=== PATIENT | female | born 1970 | race Caucasian/White ===

== ENCOUNTER 2022-11-01 10:16 | Outpatient (CLI) | payer OTHER, SELFPAY ==
--- NOTE | ~2022-11-01 | XR_ITS ---
EXAMINATION: XR shoulder LT min 2V INDICATION: Adhesive capsulitis of the left shoulder TECHNIQUE: Four views of the left shoulder are submitted. COMPARISON: None FINDINGS: Normal alignment. No fracture. Glenohumeral and acromioclavicular joint spaces are normal. Soft tissues are unremarkable. IMPRESSION: 1. No acute osseous abnormality. Reviewed, dictated and finalized at location B. 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
== END 2022-11-01 10:17 ==
PROVIDERS: PCP Family Medicine; Visit Provider Physician Assistant
DX: M75.02 Adhesive capsulitis of left shoulder (principal)
CPT/HCPCS: 73030

== ENCOUNTER 2025-01-31 01:41 | Day surgery (SDC) | payer OTHER, SELFPAY ==
[2025-01-20 14:19] VITALS: BMI 27.5
--- OUTSIDE RECORDS SUMMARY | 2025-01-31 01:43 | XMS_ITS | Clinical Summary ---
Author Organization [facility] Address [facility] [place] [address] Care Team Providers Care Medical Practice Manager Name Role Phone Bao Brown MD Primary Care Provider [phone] Allergies Active Allergy Reactions Criticality Noted Date Comments Penicillins Swelling Medium 07/20/2019 Social History Tobacco Use Types Packs/Day Years Used Date Smoking Tobacco: Never Assessed Personal Safety Answer Date Recorded Getting School Help Needed Not on file 01/15 Comments Unknown Sex and Gender Information Value Date Recorded Sex Assigned at Not on file 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
--- OUTSIDE RECORDS SUMMARY | 2025-01-31 01:43 | XMS_ITS | Referral Summary ---
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
--- OUTSIDE RECORDS SUMMARY | 2025-01-31 01:43 | XMS_ITS | Data Portability ---
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 Patient will come back in a year unless there are new symptoms. Not available 03/05/2023 12:09:51 04/06/2024 04/06/2024 Annual gynecological exam performed. Patient will come back in a year unless there are new symptoms. Not available 04/06/2024 17:22:32 Plan of Treatment Reminders Order Date Submit Date Provider Last Modified By Organization Details Last Modified Time Details Appointments None recorded. Lab hormone panel, serum or plasma 2022 023 [facility] (Lab), [address] [place], [address], 3 10:02:05 prolactin, serum 2022 023 [facility] (Lab), [address] [place], [address], 3 10:02:04 TSH, serum or plasma 2022 023 [facility] (Lab), [address] [place], [address], 3 10:02:05 Referral None recorded. Procedures None recorded. Surgeries None recorded. Imaging MAMMO, screening, bilateral [address] [facility], [address], [place], [address], 4 09:54:11 US, pelvis 2022 023 [email or web address] [place], [address], [place], [address], 3 21:12:11 US, transvagina l [email or web address], [address], [address], [place], [address], 3 21:12:11 MAMMO, screening, bilateral 2022 023 [facility], [address], [place], [address], 3 05:00:49 US, pelvis, complete 2022 023 [address], [address], [place], [address], 3 12:04:12 Medication Orders Imvexxy Maintenance Pack 4 mcg vaginal insert 2023 024 [address] [id number], [address] [place], [place], [id number], 4 18:04:20 fluoxetine 20 mg capsule 2022 023 [place] [address] [id number], [address] [place], [place], [id number], 4 17:26:17 Patient TargetsNo targets recorded. Patient InstructionsNo instructions recorded. Reason for Referral None Reported. Results Created Date Observation Date Name Description Value Unit Range Abnormal Flag Note LastModifiedBy Organization Detail LastModifiedTime 03/05/20 23 03/05/2023 PROLA CTIN prolactin, total 11.10 NG/mL 4.79-2 3.30 This assay was perfo rmed using [employer] ratio n reage nts and test kits. Value s obtai cee with other assay metho ds or kits canno t be used inter [facility] . Not Available [facility] (Lab) [address] [facility], [place], [address], 03/06/2023 10:02:04 03/05/20 23 03/05/2023 FSH, LH, ESTRA DIOL estradiol 9.2 pg/mL This assay was perfo rmed using [employer] reage nts and test kits. Value s obtai cee with other assay metho ds or kits canno t be used inter [facility] . Femal e Estra diol Range s: Folli cular phase 12.4- 233 pg/mL Ovula tion phase 41.0- 398 pg/mL Lutea l phase 22.3- 341 pg/mL Postm enopa usal< 5-138 pg/mL Healt hy Pregn ant Women 1st Trime ster1 54-32 43 pg/mL 2nd Trime ster1 561-2 1280 pg/mL 3rd Trime ster8 525-> 82040 pg/mL Not Available [facility] (Lab) [address] [place], [address], 03/06/2023 10:02:05 03/05/20 23 03/05/2023 FSH, LH, ESTRA DIOL FSH 115.0 mIU/m L This assay was perfo rmed using [employer] reage nts and test kits. Value s obtai cee with other assay metho ds or kits canno t be used inter [facility] . Femal es Folli cular : 3.5-1 2.5 mIU/m L Ovula tion: 4.7-2 1.5 mIU/m L Lutea l: 1.7-7 .7 mIU/m L Postm enopa use: 25.8- 134.8 mIU/m L Not Available [facility] (Lab) [address] [facility], [place], [address], 03/06/2023 10:02:05 03/05/20 23 03/05/2023 FSH, LH, ESTRA DIOL LH 62.5 mIU/m L This assay was perfo rmed using [employer] reage nts and test kits. Value s obtai cee with other assay metho ds or kits canno t be used inter [facility] . Femal es Mid-F ollic ular: 2.4-1 2.6 mIU/m L Mid-C ycle: 14.0- 95.6 mIU/m L Mid-L uteal : 1.0-1 1.4 mIU/m L Postm enopa use: 7.7-5 8.5 mIU/m L Not Available [facility] (Lab) [address] [facility], [place], [address], 03/06/2023 10:02:05 03/05/20 23 03/05/2023 TSH, REFLE X FREE T4 TSH 0.94 uIU/m L 0.30-[address] 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 FINAL DIAGN OSIS: Negat bart for Intra epith elial Halina nuñez or Adrian john (NIL) . Elect lexy rich d by James Nick , [place] on 023 at 3:45 PM ----- ----- ----- ----- ----- ----- ----- ----- ----- ----- ----- ----- ----- ----- ----- ----- ----- ---- HPV RESUL TS: HPV mRNA E6/E7 : No HPV mRNA Detec sergio NOTE: This high risk HPV mRNA assay detec ts fourt een high- risk HPV types (16, 18, 31, 33, 35, 39, 45, 51, 52, 56, 58, 59, 66, 68) witho ut diffe renti ation . COMME NT: This speci men was revie wed by a Cytot echno logis t and/o r Patho logis t (as indic ated in this repor t) after evalu ation using the Thinp rep Imagi ng Syste m. CLINI HELDER INFOR MATIO N: Menst rual Statu s: LMP (if appli cable ): Clini helder Histo ry/Pr eviou s Pap: Type of Neopl jaqueline (if appli cable ): Signi fican t Clini helder Findi ngs: Other Histo ry: Hormo sharan (if appli cable ): PAP EDUCA BRY L NOTE: The Pap Test is a scree madelyn test with an inher ent false negat bart rate. Liqui d-bas ed sampl ing may decre ase, but will not elimi miguel, false negat bart resul ts. A negat bart resul t does not precl ude the prese nce and/o r devel opmen t of disea se, since the prese nce of abnor mal cells in the sampl e depen ds on the locat ion of the halina nuñez and sampl ing techn ique. Avinash nued regul ar scree madelyn is the best metho d of cance r preve ntion . If repor sergio cytol ogic findi ng do not corre late with physi helder and/o r histo rical findi ngs, furth er inves tigat ion is recom fabienne d, as clini ton mar nted. Not Available 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 ----- ----- ----- ----- ----- ----- ----- ----- ----- ----- ----- ----- ----- ----- ----- ----- ----- ---- FINAL DIAGN OSIS: Negat bart for Intra epith elial Lesio n or Adrian john (NIL) . [place] rich d by Gopal Conner ed, [place] on 024 at 6:17 PM ----- ----- ----- ----- ----- ----- ----- ----- ----- ----- ----- ----- ----- ----- ----- ----- ----- ---- HPV RESUL TS: HPV mRNA E6/E7 : No HPV mRNA Detec sergio NOTE: This high risk HPV mRNA assay detec ts fourt een high- risk HPV types (16, 18, 31, 33, 35, 39, 45, 51, 52, 56, 58, 59, 66, 68) witho ut diffe renti ation . COMME NT: This speci men was revie wed by a Cytot echno logis t and/o r Patho logis t (as indic ated in this repor t) after evalu ation using the Thinp rep Imagi ng Syste m. CLINI HELDER INFOR MATIO N: Menst rual Statu s: LMP (if appli cable ): Clini helder Histo ry/Pr eviou s Pap: Type of Neopl jaqueline (if appli cable ): Signi fican t Clini helder Findi ngs: Other Histo ry: Hormo sharan (if appli cable ): PAP EDUCA BRY L NOTE: The Pap Test is a scree madelyn test with an inher ent false negat bart rate. Liqui d-bas ed sampl ing may decre ase, but will not elimi miguel, false negat bart resul ts. A negat bart resul t does not precl ude the prese nce and/o r devel opmen t of disea se, since the prese nce of abnor mal cells in the sampl e depen ds on the locat ion of the lesio n and sampl ing techn ique. Avinash nued regul ar scree madelyn is the best metho d of cance r preve ntion . If repor sergio cytol ogic findi ng do not corre late with physi helder and/o r histo rical findi ngs, [facility] inves tigat ion is recom fabienne d, as clini ton mar nted. Not Available [facility] (Lab) [address], [place], [address], 04/09/2024 19:19:51 03/06/20 23 03/06/2023 US, pelvi s No observ ation record ed. [email or web address] [place] [address], [place], [address], 03/06/2023 15:09:07 03/06/20 23 03/06/2023 US, trans vagin al No observ ation record ed. [email or web address] [place] [address], [place], [address], 03/06/2023 15:08:56 03/06/20 23 03/06/2023 US, pelvi s No observ ation record ed. [email or web address], [place], [address], 03/12/2023 10:35:35 Result Notes None recorded. Procedures Surgical History Date Name Laterality Status Provider Name and Address Organization Details Recorded Time 3 Date of Last Pap Smear completed [facility] 04/06/2024 17:26:36 8 Date of Last Mammogram completed [facility] 03/05/2023 12:11:35 9 Caesarean Section completed [facility] 03/05/2023 12:14:47 1 Caesarean Section completed [facility] 03/05/2023 12:14:29 Imaging Results Imaging Date Name Status LastModified by Organization Details LastModified Time 03/06/2023 US, pelvis completed [email or web address] [place] [address], [place], [address], 03/06/2023 15:09:07 03/06/2023 [facility]inal [email or web address] [address], [place], [address], 03/06/2023 15:08:56 03/06/2023 US, pelvis completed [email or web address], [place], [address], 03/12/2023 10:35:35 Procedure Notes None recorded. Medical Equipment None Reported. Allergies Allergen ID Allergen Name Allergen Category Reaction Reaction Severity Criticality Documentation Date Start Date Code Code System Note Provider Name and Address Organization Details Recorded Time Product containin g penicilli n (product) medicatio n Not available Not available Not available 03/05/2023 [id number] SNOMED Trisha garrison, [facility] 12:10:55 Medications Name Sig Start Date Stop Date Status Note LastModified by Organization Details LastModified Time fluoxetine 20 mg capsule TAKE 1 CAPSULE BY MOUTH EVERY DAY WITH A MEAL 04/06 completed Not Available Not Available Not Available Imvexxy Maintenance Pack 4 mcg vaginal insert Insert 1 vaginal insert twice a week by vaginal route for 30 days. 2023 active Not Available Not Available Not Avai lable Vitals Date Recorded Body height Body mass index (BMI) Body weight Systolic blood pressure Diastolic blood pressure Provider Name and Address Organization Details Last Updated DateTime 03/05/2023 160.02 cm 29.1 kg/m2 80313.15 g 144 mm[Hg] 96 mm[Hg] Trisha Anthony [facility] 12:10:19 Date Recorded Systolic blood pressure Diastolic blood pressure Provider Name and Address Organization Details Last Updated DateTime 03/05/2023 130 mm[Hg] 82 mm[Hg] Adriana Larson [facility]- [address], [place], [address], [facility] 03/05/2023 14:49:30 Date Recorded Body height Body mass index (BMI) Body weight Systolic blood pressure Diastolic blood pressure Provider Name and Address Organization Details Last Updated DateTime 03/12/2023 160.02 cm 29.1 kg/m2 81267.15 g 126 mm[Hg] 82 mm[Hg] Trisha Anthony [facility] 10:38:26 Date Recorded Body height Body mass index (BMI) Body weight Provider Name and Address Organization Details Last Updated DateTime 04/06/2024 160.02 cm 28.9 kg/m2 30618.56 g Trisha Anthony [facility] 04/06/2024 17:25:44 Date Recorded Systolic blood pressure Diastolic blood pressure Provider Name and Address Organization Details Last Updated DateTime 04/06/2024 126 mm[Hg] 76 mm[Hg] Adriana Larson, [facility]- [address], [place], [address], [facility] 04/14/2024 14:43:50 Social History Question Answer Notes LastModified by Organizat ion Details LastModified Time Tobacco Smoking Status Never Smoker Trisha Anthony null, [facility] 03/05/2023 12:14:18 What Is Your Level Of Alcohol Consumption? Occasional Information not available 03/05/2023 How Many Years Have You Consumed Alcohol? 30 Information not available 03/05/2023 Are You Blind Or Do You Have Difficulty Seeing? No Information n ot available 03/05/2023 What Is Your Level Of Caffeine Consumption? None Information not available 03/05/2023 In The 14 Days Before Symptom Onset, Have You Had Close Contact With A Laboratory-confirm ed COVID-19 While That Case Was Ill? No Information n ot available 03/05/2023 In The 14 Days Before Symptom Onset, Have You Had Close Contact With A Person Who Is Under Investigation For COVID-19 While That Person Was Ill? No Information not available 03/05/2023 Have You Been To An Area Known To Be High Risk For COVID-19? No Information not available 03/05/2023 Are You Deaf Or Do You Have Serious Difficulty Hearing? No Information not available 03/05/2023 What Type Of Diet Are You Following? REGULAR Information n ot available 03/05/2023 What Is The Highest Grade Or Level Of School You Have Completed Or The Highest Degree You Have Received? 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 No Information not available 03/05/2023 Do You Use Your Seat Belt Or Car Seat Routinely? Yes Information not available 03/05/2023 How Much Tobacco Do You Smoke? No Information not available 03/05/2023 Do You Feel Stressed (tense, Restless, Nervous, Or Anxious, Or Unable To Sleep At Night)? [id number] Information not available 04/06/2024 Do You Use Any Illicit Or Recreational Drugs? No Information not available 03/05/2023 Have You Used IV Drugs? No Information not available 03/05/2023 Sex: Unknown Functional Status Question Answer Note LastModified by Organization D etails LastModified Time Are you able to walk? YESWOREST Information not available 03/05/2023 What is your exercise level? Moderate Information not available 03/05/2023 Mental Status None recorded. Family History Relationship Description Onset Age of this Age Resolved Age Notes LastModified by Organization Details LastModified Time Maternal Uncle Kidney disease Not available 2022 12:10:25 Maternal Uncle Malignant tumor of lung Not available 2022 12:14:08 Medical History Condition Response Allergies (Food, seasonal, environmental ) Y Other Y Hematologic disorders Y Autoimmune disease Y Polyps Y Heart Problems Y Gynecological History Statement/Question Response Flow Light Date of Last Mammogram 11/03/2017 Date of LMP 02/25/2023 Y Was last menstrual period normal N STIs/STDs N HPV Vaccine N Current Control Method Menopause Age at First Child 21 If Post Menopausal, Age at Menopause 51 Are cycles usually normal N Date of Last Colonoscopy Sexually Active? Y Menses Monthly N Age of first menstrual cycle 14 Date of Last Pap Smear 03/05/2023 Sexual Problems? N LMP Approximate N Obstetrics History GPAL:G 3 P 2 0 1 2 Type Value Full Term 2 Induced 1 Living 2 Total 3 Past Encounters Encounter ID Performer Location Encounter Start Date Encounter Closed Date Diagnosis/Indication Diagnosis SNOMED-CT Code Diagnosis ICD10 Code Diagnosis Note [id number] Adriana Larson [facility] [address] [address] 03/05/2023 11:55:27 03/05/2023 15:10:51 Gynecologic examination 91080365 Z01.419 Take Calcium with Vitamin D 12-1500mg daily. Do monthly self breast exams. It is advised to get annual flu shot in the fall and she could obtain at [facility] or [facility]. If you haven't received the Tdap vaccine in the last 10 years you should obtain one as well. Have mammogram yearly, bone density every 2-3 years and colonoscop y every 5-10 years depending on findings and history. Engage in daily exercise of low impact aerobic exercise 45-60 minutes 4-5 times weekly. Avoid tobacco and illicit drugs as well as using moderation with alcohol intake less than 1-2 8 oz beverages daily. This lifestyle behavior pattern will lead to less health conditions and longer life span. If BMI greater than 25 weight watchers or dietary consult advised. Questions have been answered. Patient appears to understand instructio ns, but if you have any further questions call or respond to this email Pap/hpv sentSTD Screen declinedGe netic Screen discussedC olon Screen PCPDexa Screen PCPRoutine Labs-order edMammo-or dered Menopausal symptom 74625 002 N95.1 Need evaluation for AUB vs PMB prior to initiating HRT if decide to pursue this route. We discussed Menopausal Hormone therapy (MHT) for women with intact uterus with the goals of reliving vaso-motor sx's using estrogen/p rogestin therapy (EPT) using lowest doses for shortest duration in women 40-59yo. Contraindi cations include: Hx of DVT or thrombolic events, High cholestero l, Hx of breast cancer, known CHD, active liver disease, unexplaine d vag bleeding, high risk endometria l cancer, TIA. Side effects can include but are not limited to: Irregular vag bleeding,, breast tenderness , nausea, weight changes, libido changes, nausea. Adverse Rxn: Elevated BP migraine w/ visual changes, breast cancer dx, UT/stroke, DVT/PE, Endometria l cancer. Please contact office with any new or worsening side effects or adverse reactions. Or if a medical emergency please go to nearest ED/[facility] for further evaluation . Generalize d anxiety disorder [id number] F41.1 Paradoxal rxn benadryl consider ADHD diagnosis. Consider trial of Wellbutrin xl Discussed trial of Prozac for anxiety/de pression/M enopausal mood changes/Ma y help with vasomotor sx's so we may/may not need HRT. Counseled on r/b's, most common side effects of this therapy with instructio ns to stop medication with any significan t abnormal change in mood especially with thoughts of suicide/se lf-harm/pretty rm to others. Understand ing verbalized . Screening mammography 24 375830 Z12.31 Abnormal u terine bleeding [id number] 9100 N93.9 AUB vs PMBWill udpate US as has Hx of fibroids; and determine if EMBx is also required.U pdate lab work.Agree able. Dyspareunia [id number] N94 .10 Likely postmenopa usal changes.Di scuss vaginal estrogen moving forward to assist with this issue. Elevated blood-pressure reading without diagnosis of hypertension 105954617 R03.0 Has anxiety.BP being monitored by PCP.Usuall y only elevates when anxiety is high.Then returns to normal.Has BP check coming up. [id number] [facility] [place] [address] [address] 03/06/2023 12:30:15 03/06/2023 14:12:18 Abnormal uterine bleeding [id number] 9100 N93.9 N94.10 [id number] Adriana Larson [facility] [address] [address] 03/12/2023 10:30:58 03/12/2023 11:41:46 Uterine leiomyoma 07464101 D25.9 US/Labs reviewed.H x of fibroids.T dorcas we agreed to monitor.If AUB occurs again we will pursue the EMBx but based on US & review of Hx reasonable to monitor at this time.Will request records from [facility] claros Time spent in visit is a total of 15 mins with at least 50% of visit consisting of counseling and review of plan of care. Menopausal syndrome 1237 01512 N95.9 Has been on SSRI x 1wk now.Tolera ting it well.A little stomach upset that resolves if taken with food.No neg cardiovasc ular effects noted currently. We will continue and f/u x 4wks med check to evaluate if we stay at this dose or adjust as needed. [id number] Adriana Larson , [facility] [address] [address] 04/06/2024 17:12:27 04/14/2024 15:51:57 Gynecologic examination [id number] Z01.419 Z11.51 Take Calcium with Vitamin D 12-1500mg daily. Do monthly self breast exams. It is advised to get annual flu shot in the fall and she could obtain at [facility] or [facility] care clinic. If you haven't received the Tdap vaccine in the last 10 years you should obtain one as well. Have mammogram yearly, bone density every 2-3 years and colonoscop y every 5-10 years depending on findings and history. Engage in daily exercise of low impact aerobic exercise 45-60 minutes 4-5 times weekly. Avoid tobacco and illicit drugs as well as using moderation with alcohol intake less than 1-2 8 oz beverages daily. This lifestyle behavior pattern will lead to less health conditions and longer life span. If BMI greater than 25 weight watchers or dietary consult advised. Questions have been answered. Patient appears to understand instructio ns, but if you have any further questions call or respond to this email Pap/hpv sentSTD Screen declinedGe netic Screen discussedC olon Screen PCP to order due NOWDexa Screen naRoutine Labs PCPMammo-o rdered Screening mammography 24 132339 Z12.31 Dyspareunia [id number] N94 .10 Postmenopa usal changes on exam.Trial of Imvexxy 4mcg x 4wks with med check.Full improvemen t likely in 12wks but should note some improvemen t in at least 4wks. Counseled on the following: Vaginal Dryness: Bothersome symptoms of the vagina and vulva (outer lips of the vagina) increase during and after the menopause transition or may start several years after menopause. The decrease in estrogen with menopause is a major contributo r to vaginal dryness, itching, burning, discomfort , and pain during intercours e or other sexual activity. Vaginal atrophy is the medical term that describes these changes. The genitourin rani syndrome of menopause includes bothersome vaginal atrophy often combined with urinary symptoms. Vaginal atrophy may significan tly affect your quality of life, sexual satisfacti on, and relationsh ip with your partner. Unlike hot flashes, which generally improve with time, vaginal symptoms typically worsen with time because of aging and a prolonged lack of estrogen. Vaginal estrogen therapy An effective and safe treatment, low-dose local estrogen is applied directly to the vagina to restore vaginal health and relieve vaginal dryness and discomfort with sexual activity. Improvemen ts usually occur within a few weeks, although complete relief may take several months. This even may be an option for women with a history of breast or uterine cancer but only after careful considerat ion of risks and benefits with a healthcare provider and oncologist . Governmen t-approved low-dose vaginal estrogen products are available by prescripti on as vaginal creams (used two or three nights/wee k), a vaginal estradiol tablet (used twice/week ), and an estradiol vaginal ring (changed every 3 months). All are highly effective. You may wish to try several different forms and choose the one you prefer. Standard doses of estrogen therapy provided to treat hot flashes also treat vaginal dryness, although some women still benefit from additional low-dose vaginal estrogen treatment. If only vaginal symptoms are present, low doses of estrogen applied to the vagina are recommende d. Resources: https://ww w.[employer].org/docs /default-s ource/for- women/mn-v aginal-dry ness.pdf Health Concerns Section Related Observation LastModified by Organization Detai ls LastModified Time None Recorded Concern Status LastModified by Organization Details LastModified Time None Recorded Advance Directives Directive None Recorded Payers Encounter Date Sequence Insurance Name Policy Number Policy Damon Covered Member ID Damon Member ID Guarantor Name 03/05/2023 1 [employer] [id number] Jose Garrison [id number] Anahi Garrison 03/06/2023 1 [place] [id number] Jose Garrison [id number] Anahi Garrison 03/12/2023 1 [facility] [id number] Jose Garrison [id number] Anahi Garrison 04/06/2024 1 [employer] [id number] Anahi Garrison [id number] Anahi Garrison Notes Date Note Type Note Provider Name and Address Organization Details Recorded Time 03/05/2023 text/html 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 Preventive Measures:encourag e regular mammograms starting age 40; encourage self breast examination; encourage regular exercise; encourage no tobacco use; needs to schedule mammogram; history of recent colonoscopy [facility] [address], [place], [address], [facility] 03/05/2023 14:54:36 03/12/2023 text/html Here today to discuss labs/US/Med check of SSRI. [facility] [address], [place], [address], [facility] 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 Post-MenopausalRe ported bypatient.Men[place] vipin Symptoms:no menopausal symptoms;inadequa cy of lubrication of vaginal mucosa Vaginal Bleeding:history of menopause having occurred; no history of post menopausal bleeding Urinary Symptoms:no hematuria; no incontinence; no nocturia; no urinary frequency Vulva:no genital lesion; no vulvar atrophy Vagina:normal vaginal discharge; no vaginal atrophy Breast:no breast lump; no nipple discharge; no breast pain Sexual Complaints:no sexual complaints;pain during intercourse Psychological Symptoms:no depression; no anxiety Preventive Measures:encourag e regular mammograms starting age 40; encourage self breast examination; encourage regular exercise; encourage no tobacco use; needs to schedule mammogram; history of recent colonoscopy Adriana Larson, DAVID- [address], [place], [address], [place] [facility] 04/14/2024 14:48:51 OBGyn Episode Ob Episode Information Episode Created Date Number of Fetuses Patient Bloodtype Patient rh Status Prepregnancy Weight lbs Domestic Partner Domestic Partner Phone Father Name Lan Engineer Status 03/05/20 23 1 CLOSED Fetus Data First Name Last Name Admitted to NICU Weight (g) Sex Living Outcome Pediatric Complications Fetus ID Race Codes Race Delivery Type [phone] M Full Term Primary Cesar Calculation Initial Cesar Date Initial Exam Date Initial Exam Provider Initial Ultrasound Date Last Menstrual Period Date Ultra Sound Weeks Gestation 0 Eighteen To Twenty Week Cesar Update Ultra Sound Date Fundal Height At Umbil Quickening Date Ultra Sound Latest Weeks Gestation Final Cesar Confirmed By Final Cesar Confirmed Date Final Cesar Date Ultra Sound Latest Days Gestation 0 0 Menstrual History Last Menstrual Date Menses Monthly On Bcp Conception Prior Menses Frequency Hcg Plus Date Menarche Onset Age Delivery Information Delivery Date Delivery Type Labor Anesthesia Weeks Gestation Incision Type Labor Labor Length Hrs Delivered By Post Complications Tubal Sterilization Discharge Date Comments 9 Discharge Information Feeding Method Contraceptive Method Maternal HG B and HCT Levels Ob Episode Information Episode Created Date Number of Fetuses Patient Bloodtype Patient rh Status Prepregnancy Weight lbs Domestic Partner Domestic Partner Phone Father Name Lan Engineer Status 03/05/20 23 1 CLOSED Fetus Data First Name Last Name Admitted to NICU Weight (g) Sex Living Outcome Pediatric Complications Fetus ID Race Codes Race Delivery Type [id number] 4 F Full Term Primary Cesar Calculation Initial Cesar Date Initial Exam Date Initial Exam Provider Initial Ultrasound Date Last Menstrual Period Date Ultra Sound Weeks Gestation 0 Eighteen To Twenty Week Cesar Update Ultra Sound Date Fundal Height At Umbil Quickening Date Ultra Sound Latest Weeks Gestation Final Cesar Confirmed By Final Cesar Confirmed Date Final Cesar Date Ultra Sound Latest Days Gestation 0 0 Menstrual History Last Menstrual Date Menses Monthly On Bcp Conception Prior Menses Frequency Hcg Plus Date Menarche Onset Age Delivery Information Delivery Date Delivery Type Labor Anesthesia Weeks Gestation Incision Type Labor Labor Length Hrs Delivered By Post Complications Tubal Sterilization Discharge Date Comments 1 Discharge Information Feeding Method Contraceptive Method Maternal HG B and HCT Levels
--- OUTSIDE RECORDS SUMMARY | 2025-01-31 01:43 | XMS_ITS | Clinical Summary ---
Author Organization [facility] Address [address] [place] [address] Care Team Providers Care Operations Research Group Manager Name Role Phone Bao Brown MD Primary Care Provider Source Comments [facility],non-owned Affiliates and Associated Physician Practices is amultiple site organization consisting of ambulatory clinics and hospital sitesin [place], [place], [place] and [place]. This disclosure is being madepursuant to the Care Everywhere program and may not contain all information available regarding this patient. Last updated 18.[facility] Allergies Active Allergy Reactions Criticality Noted Date Comments Penicillins Swelling 07/20/2019 Medications * Be aware that medications may not be up to date on this document. Alwaysverify current medications with the patient. Medication Sig Dispensed Refills Start Date End Date Status medroxyPROGESTERone (PROVERA) 10 MG tablet Take 1 tablet by mouth once daily 30 tablet 2 06/09/2020 Active Active Problems No known active problems Social History Tobacco Use Types Packs/Day Years Used Date Smoking Tobacco: Former Smokeless Tobacco: Never Sex and Gender Information Value Date Recorded Sex Assigned at Not on file Gender Identity Not on file Sexual Orientation Not on file Last Filed Vital Signs Vital Sign Reading Time Taken Comments Blood Pressure 119/80 06/09/2020 10:53 AM CDT Pulse - - Temperature - - Respiratory Rate - - Oxygen Saturation - - Inhaled Oxygen Concentration - - Weight 62.1 kg (136 lb 12.8 oz) 020 10:53 AM CDT Height 160 cm (5' 3 ) 06/09/2020 10:53 AM CDT Body Mass Index 24.23 06/09/2020 10:53 AM CDT Plan of Treatment Health Maintenance Due Date Last Done Comments COLOGUARD (AGES 45-75) - COL ON CA SCREENING 1971 COLON MONITORING 1971 COLONOSCOPY - COLON CA SCREENING 1971 CT COLONOGRAPHY - COLON CA SCREENING 1971 Colorectal Cancer Screening 1971 FIT - COLON CA SCREENING 1971 FLEX SIG - COLON CA SCREENING 1971 LIPID TESTING 1971 MAMMOGRAM 1971 HIV SCREENING 1986 HEPATITIS C SCREENING 09/05/1989 DTAP/TDAP/TD VACCINES (1 - Tdap) 1990 HEPATITIS B VACCINE (1 of 3 - 19+ 3-dose series) 1990 PNEUMOCOCCAL VACCINE 50+ (1 of 1 - PCV) 2021 ZOSTER VACCINE (1 of 2) 2021 COVID-19 VACCINE (1 - 2023-2 5 season) 2024 INFLUENZA VACCINE (#1) 2024 DEPRESSION SCREENING 11/03/2024 PAP with HPV 04/17/2025 04/17/2020 HIB VACCINE Aged Out No longer eligi ble based on patient's age to complete this topic HPV VACCINE Aged Out No longer eligi ble based on patient's age to complete this topic MENINGOCOCCAL (Group B) VACC INE SHARED DECISION-MAKING Aged Out No longer eligibl e based on patient's age to complete this topic MENINGOCOCCAL GROUPS A/C/Y/W VACCINE Aged Out No longer eligible b ased on patient's age to complete this topic PNEUMOCOCCAL VACCINE Aged Out No long er eligible based on patient's age to complete this topic Procedures Procedure Name Priority Date/Time Associated Diagnosis Comments HPV DETECTION HIGH RISK MILE Routine 04/17/2020 2:55 PM CDT Well woman exam from Last 3 Months or Most Recently Relevant to Health Maintenance Results * HPV DETECTION HIGH RISK MILE (04/17/2020 2:55 PM CDT) High Risk Human Papilloma Result Not Detected Not Detected 04/20/2020 1:41 PM CDT [facility] High Risk Human Papilloma Interp 04/20/2020 1:41 PM CDT [facility] Comment:High Risk Human Oni lloma Virus was Not Detected. Pathology/Cytolo gy MISCELLANEOUS SAMPLES / Unknown 04/17/2020 2:55 PM CDT 04/19/2020 11:21 AM CDT Narrative [facility] - 04/20/2020 1:41 PM CDT Nucleic acid isolated from the specimen was analyzed with a nucleic acid amplification test (FDA approved Gen-Probe HPV Assay) to detect high risk human papilloma virus (Types: 16, 18, 31, 33, 35, 39, 45, 51, 52, 56, 58, 59, 66, and 68). The reference range is Not Detected . Comment: These test results should not be used as the sole basis for clinical assessment and treatment of patients. These results should always be correlated with other available data (cytology, histology, and clinical information). Kath Reyes MD LAB - MICROB IOLOGY ORDERABLES Performing Organization Address City/State/[facility] Co de Phone Number [facility] [address] [phone] from Last 3 Months or Most Recently Relevant to Health Maintenance Care Teams Operations Research Group Manager Relationship Specialty Start Date End Date Bao Brown MD [address] [facility] [place] [address] PCP - General 07/20/19
[2025-01-31 09:51] VITALS: BP 133/75; PULSE 79; RESP 20; TEMP 36.1; O2SAT 97
[2025-01-31] MEDS: LACTATED RINGERS 1,000 ML 150 ML IV CONT (10:01)
--- NOTE | 2025-01-31 10:15 | SUR.PREOP ---
Patient states last menstrual cycle was 2 years ago. No need for urine test per Dr. Miles.
--- NOTE | 2025-01-31 10:26 | WPDANESEPPF ---
Anes - Initial Pre Proc Eval Procedure: Operation Date: 01/31/25 11:00 Proposed Procedures p Colonoscopy - Jose Bassett MD Date/Time: 01/31/25 10:26 Surgeon: Jose Bassett MD Pre Op Diagnosis: colitis Patient Data Age: 54 Gender: F Height: 1.6 m Weight: 70.9 kg Last Vital Signs Temp 97 F L 01/31/25 09:51 Pulse 79 01/31/25 09:51 Resp 20 01/31/25 09:51 BP 133/75 01/31/25 09:51 Pulse Ox 97 01/31/25 09:51 O2 Del Method Room Air 01/31/25 09:51 Allergies Allergy/AdvReac Type Severity Reaction Status Date / Time Penicillins Allergy Unknown Rash Verified 01/31/25 09:50 Patient hx anesthesia problems: none Family hx anesthesia problems: none Results Review: All pre-operative results and documents have been reviewed as part of the pre-operative evaluation. [facility] Past Medical History Medical History Sol syndrome Surgical History Surgical History History of section 1998 Family History Family History Mother Diabetes mellitus Hypertension Father Hypertension Social History Social History Smoking packs per day: 1 Smoking cigarettes per day: 20.0 Years smoked: 8 Smoking pack-years: 8.00 Smoking status: Former smoker Second hand tobacco smoke exposure: No Alcohol intake: current Drinks per week: 7 Alcohol use details: wine daily Substance use: never Substance use type: marijuana Other substance usage details: marijuana vape pen Lack of Transportation: No Lack of Food: Never True Current Housing: I Have Housing Concerned About Future Housing: No Difficulty Paying Gas/Electric Bills: No Difficulty Paying for Meds: No Currently Unemployed: YES Education: Associate Degree Difficulty w/ Childcare or Family Care: No Living arrangements: with family Occupation/Education: unemployed 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 Gender identity (if verbalized by the patient): Female Sexual Orientation (if Verbalized by the Patient): Straight or Heterosexual Spiritual care concerns: No Anes - Eval Final PreProcedure Day of Procedure 01/31/25 10:26 Patient weight: normal Lungs: normal air movement Airway: Mallampati scale class II Neurological: alert and oriented Last oral intake: >/= 8 hours ASA classification: II Emergent: no Anesthetic plan: proceed Anesthesia type and monitoring: general GIVS and standard monitoring Results Review: All pre-operative results and documents have been reviewed as part of the pre-operative evaluation. Hx of palpitations, pt uses cannibis approx 4 x weekly. Active w 1-2 fos, no cp or sob. Informed Consent: The patient's anesthetic plan and its attendant risks and benefits were discussed with the patient/family/POA. Questions were solicited and answers provided to the satisfaction of the patient/family/POA.
--- NOTE | 2025-01-31 10:44 | PM.IMHP ---
H&P: HPI History of Present Illness Date/Time: 01/31/25 10:44 Chief Complaint: Screening colonoscopy Narrative: This is the patient's first colonoscopy. There are no GI symptoms and there is no family history of colorectal cancer. Review of Systems Review of Systems: All systems reviewed & are unremarkable except as noted in HPI and below PMFSH Past Medical History Medical History Sol syndrome Surgical History Surgical History History of section 1998 Family History Family History Mother Diabetes mellitus Hypertension Father Hypertension Social History Social History Smoking packs per day: 1 Smoking cigarettes per day: 20.0 Years smoked: 8 Smoking pack-years: 8.00 Smoking status: Former smoker Second hand tobacco smoke exposure: No Alcohol intake: current Drinks per week: 7 Alcohol use details: wine daily Substance use: never Substance use type: marijuana Other substance usage details: marijuana vape pen Lack of Transportation: No Lack of Food: Never True Current Housing: I Have Housing Concerned About Future Housing: No Difficulty Paying Gas/Electric Bills: No Difficulty Paying for Meds: No Currently Unemployed: YES Education: Associate Degree Difficulty w/ Childcare or Family Care: No Living arrangements: with family Occupation/Education: unemployed 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 Gender identity (if verbalized by the patient): Female Sexual Orientation (if Verbalized by the Patient): Straight or Heterosexual Spiritual care concerns: No Meds Home Medications and Allergies Allergies Allergy/AdvReac Type Severity Reaction Status Date / Time Penicillins Allergy Unknown Rash Verified 01/31/25 09:50 Vital Signs Vital Signs - 24 hr 01/31/25 09:51 Temperature 97 F L Pulse Rate 79 Respiratory Rate 20 Blood Pressure 133/75 Pulse Oximetry 97 Oxygen Delivery Room Air Exam Const: General: cooperative and healthy appearing Resp: Effort & Inspection: normal respiratory effort and able to speak in complete sentences Auscultation: clear to auscultation bilaterally Cardio: Rate: regular rate Rhythm: regular rhythm GI: Inspection: normal to inspection GI Palp: No No hepatosplenomegaly present Auscultation: normal bowel sounds Rectal Exam: deferred Skin: General skin exam: normal color Psych: Appearance: grossly normal Mental Status: mental status grossly normal Assessment and Plan Assessment and plan (1) Encounter for screening colonoscopy: Code(s): Z12.11 - Encounter for screening for malignant neoplasm of colon Status: Acute Assessment and Plan: The patient is deemed a good candidate for the procedure. Consent signed. Will proceed.
[2025-01-31 11:08] VITALS: BP 117/70; PULSE 72; RESP 22; O2SAT 100
[2025-01-31 11:18] VITALS: BP 111/82; PULSE 68; RESP 20; O2SAT 100
[2025-01-31 11:28] VITALS: BP 125/78; PULSE 65; RESP 18; O2SAT 100
== END 2025-01-31 11:30 | disposition home or self-care (01) ==
PROVIDERS: PCP Family Medicine; Referring Provider Family Medicine; Visit Provider Internal Medicine Gastroenterology
PROC: 0DJD8ZZ Inspection of Lower Intestinal Tract, Via Natural or Artificial Opening Endoscopic (ICD-10-PCS; CPT 45378; principal; 2025-01-31 11:00)
DX: Z12.11 Encounter for screening for malignant neoplasm of colon (principal); K64.8 Other hemorrhoids; D69.41 Evans syndrome; F12.90 Cannabis use, unspecified, uncomplicated; Z98.890 Other specified postprocedural states; Z87.891 Personal history of nicotine dependence
CPT/HCPCS: 45378; J2003; J2704; J7120